=== PATIENT | male | born 1935 | race Caucasian/White ===

== ENCOUNTER 2022-07-23 15:43 | Inpatient (IN) | payer MEDICARE, OTHER ==
[~2022-07-23] VITALS: Ht 160 cm; Wt 77.1 kg
[2022-07-23 15:46] VITALS: BP_SYST 164
[2022-07-23] MEDS ORDERED: ASA81 PO (19:24)
[2022-07-23] MEDS ORDERED: METO25TA3 PO (19:24)
[2022-07-23] MEDS ORDERED: LISI40TA13 PO (19:27)
[2022-07-23] MEDS ORDERED: HYT1 PO (19:27)
[2022-07-23] MEDS ORDERED: LIP40 PO (19:27)
[2022-07-23] MEDS ORDERED: ACET325T PO (19:27)
[2022-07-23] MEDS ORDERED: COLC0.6T67 PO (19:27)
[2022-07-23] MEDS ORDERED: NAPR-686 PO (19:27)
[2022-07-23] MEDS ORDERED: FINA5TAB3 PO (19:27)
[2022-07-23] MEDS ORDERED: AMLO5TAB4 PO (19:27)
[2022-07-23 21:50] LABS: BILIRUBIN,URINE NEGATIVE (NEGATIVE); BLOOD, URINE NEGATIVE (NEGATIVE); CLARITY/URINE CLEAR (CLEAR); COLOR,URINE YELLOW (YELLOW); GLUCOSE,URINE NEGATIVE (NEGATIVE); KETONES,URINE NEGATIVE (NEGATIVE); LEUKOCYTE ESTERASE ,URINE NEGATIVE (NEGATIVE); NITRITE, URINE NEGATIVE (NEGATIVE); PH,URINE 7.5 (5.0-8.0); PROTEIN URINE NEGATIVE (NEGATIVE); UROBILINOGEN,URINE 0.2 (0.2-1.0)
[2022-07-23 22:01] LABS: EOSINOPHILS # (AUTO) 0.1 K/uL (0.0-0.4); EOSINOPHILS % (AUTO) 2.1 % (0.0-4.0); HEMOGLOBIN 12.5 g/dL (14.0-18.0); LYMPHOCYTES # (AUTO) 1.3 K/uL (1.0-5.5); MONOCYTES # (AUTO) 0.6 K/uL (0.0-1.0)
[2022-07-23 22:10] LABS: BASOPHILS % (AUTO) 0.4 % (0.0-2.0); HEMATOCRIT 35.6 % (36-54); LYMPHOCYTES % (AUTO) 22.3 % (20.5-51.5); MEAN CORPUSCULAR HEMOGLOBIN 30 pg (27-31); MEAN CORPUSCULAR HGB CONC 35 % (32-36); MEAN CORPUSCULAR VOLUME 87 fL (79.0-98.0); MONOCYTES % (AUTO) 10.6 % (1.7-9.3); NEUTROPHILS # (AUTO) 3.7 K/uL (1.8-7.7); NEUTROPHILS % (AUTO) 64.6 % (40.0-70.0); PLATELET COUNT (AUTO) 150 K/uL (130-430); RED CELL DISTRIBUTION WIDTH 13.9 % (9.0-15.0); WHITE BLOOD COUNT (AUTO) 5.7 K/uL (4.8-10.8)
[2022-07-23 22:51] LABS: ANION GAP 2 (5-15); CALCIUM 9.1 mg/dL (8.4-11.0); CHLORIDE 100 mmol/L (98-107); CREATININE 0.96 mg/dL (0.55-1.30); GLUCOSE 156 mg/dL (70-99); POTASSIUM 3.4 mmol/L (3.5-5.1); UREA NITROGEN, BLOOD 23 mg/dL (8-21)
[2022-07-23 22:56] LABS: ALANINE AMINOTRANSFERASE 20 U/L (12-78); ALBUMIN 3.7 g/dL (3.4-4.8); ASPARTATE AMINOTRANSFERASE 14 U/L (10-37); TOTAL BILIRUBIN 0.4 mg/dL (0.0-1.0)
[2022-07-24] MEDS: ASPIRIN 81 MG TAB.CHEW PO SCH ×2 (00:30→09:40)
[2022-07-24 00:32] VITALS: BP_SYST 170
[2022-07-24] MEDS: ACETAMINOPHEN 325 MG TABLET PO SCH ×3 (08:04→18:00)
[2022-07-24 09:31] VITALS: BP_SYST 141
[2022-07-24] MEDS: FINASTERIDE 5 MG TABLET (PROSCAR) PO SCH (09:41)
[2022-07-24] MEDS: TERAZOSIN HCL 1 MG CAPSULE (HYTRIN) PO SCH (09:41)
[2022-07-24] MEDS: METOPROLOL SUCCINATE 25 MG TAB.SR.24H (TOPROL XL) PO SCH (09:42)
[2022-07-24] MEDS: NAPROXEN 250 MG TABLET PO SCH ×2 (09:43→21:00)
[2022-07-24] MEDS: ATORVASTATIN 20 MG TABLET PO SCH (09:43)
[2022-07-24] MEDS: amLODIPine BESYLATE 5 MG TABLET PO SCH (09:43)
[2022-07-24] MEDS: COLCHICINE 0.6 MG TABLET PO SCH (09:44)
[2022-07-24] MEDS: lisinopriL 20 MG TABLET PO SCH (09:44)
[2022-07-24] MEDS ORDERED: GADOTERATE MEGLUMINE 7.5 MMOL/15 ML VIAL IV ONE (13:40)
[2022-07-25] MEDS: ACETAMINOPHEN 325 MG TABLET PO SCH
[2022-07-25 08:16] VITALS: BP_SYST 123
[2022-07-25] MEDS: ASPIRIN 81 MG TAB.CHEW PO SCH (09:47)
[2022-07-25] MEDS: NAPROXEN 250 MG TABLET PO SCH (09:49)
[2022-07-25] MEDS: lisinopriL 20 MG TABLET PO SCH (09:49)
[2022-07-25] MEDS: METOPROLOL SUCCINATE 25 MG TAB.SR.24H (TOPROL XL) PO SCH (09:50)
[2022-07-25] MEDS: TERAZOSIN HCL 1 MG CAPSULE (HYTRIN) PO SCH (09:51)
[2022-07-25] MEDS: ATORVASTATIN 20 MG TABLET PO SCH (09:51)
[2022-07-25] MEDS: FINASTERIDE 5 MG TABLET (PROSCAR) PO SCH (09:51)
[2022-07-25] MEDS: amLODIPine BESYLATE 5 MG TABLET PO SCH (09:52)
[2022-07-25] MEDS: COLCHICINE 0.6 MG TABLET PO SCH (09:52)
[2022-07-25 15:25] VITALS: BP_SYST 157
[2022-07-25 15:57] VITALS: BP_SYST 157
[2022-07-25 16:27] VITALS: BP_SYST 132
== END 2022-07-25 17:30 | disposition home or self-care (01) | DRG 69 ==
LOC: SED 15:43 → STU 18:48
PROVIDERS: ADMIT Family Medicine; ATTEND Family Medicine
DX: G45.9 Transient cerebral ischemic attack, unspecified (principal); I10 Essential (primary) hypertension; E78.5 Hyperlipidemia, unspecified; D69.6 Thrombocytopenia, unspecified; E11.9 Type 2 diabetes mellitus without complications; I25.10 Atherosclerotic heart disease of native coronary artery without angina pectoris; N40.0 Benign prostatic hyperplasia without lower urinary tract symptoms; M10.9 Gout, unspecified; Z20.822 Contact with and (suspected) exposure to COVID-19; Z95.1 Presence of aortocoronary bypass graft; Z79.82 Long term (current) use of aspirin; Z79.899 Other long term (current) drug therapy; Z79.1 Long term (current) use of non-steroidal anti-inflammatories (NSAID)
CPT/HCPCS: 36415; 70450-TC; 70553; 71045; 76376; 80053; 82962; 85025; 92610-GN; 93005; 93306; 93880; 97116-GP; 97530-GP; 99291; A9575; G0378